=== PATIENT | female | born 1965 | race Hispanic/Latino ===

== ENCOUNTER → 2017-11-27 | Outpatient (CLI) | payer BC ==
[2017-11-30 08:11] LABS: BASOPHILS % 0.4 % (0.0-1.0); EOSINOPHILS # (AUTO) 0.1 (0.0-0.4); EOSINOPHILS % 1.6 % (0.0-6.0); HEMATOCRIT 38.7 % (34.2-44.1); HEMOGLOBIN 12.3 g/dL (12.0-16.0); LYMPHOCYTES # (AUTO) 2.8 (1.0-3.2); LYMPHOCYTES % 34.3 % (18.0-39.1); MEAN CORPUSCULAR HEMOGLOBIN 28.8 pg (28-32); MEAN CORPUSCULAR HGB CONC 31.8 g/dL (31-35); MEAN CORPUSCULAR VOLUME 90.6 fL (81-99); MONOCYTES # (AUTO) 0.7 (0.2-0.8); MONOCYTES % 8.1 % (4.4-11.3); NEUTROPHILS # (AUTO) 4.6 (2.1-6.9); NEUTROPHILS % 55.4 % (38.7-80.0); PLATELET COUNT 165 x10e3/uL (140-360); RED BLOOD COUNT 4.27 x10e6/uL (3.6-5.1); RED CELL DISTRIBUTION WIDTH 13.7 % (11.7-14.4)
[2017-11-30 08:35] LABS: INR 1.13; PARTIAL THROMBOPLASTIN TIME 26.3 seconds (23.8-35.5); PROTHROMBIN TIME 13.6 seconds (11.9-14.5)
[2017-11-30 08:44] LABS: % IRON SATURATION 7 % (15-50); ALANINE AMINOTRANSFERASE 49 IU/L (0-55); ALBUMIN 3.4 g/dL (3.5-5.0); ALBUMIN/GLOBULIN RATIO 0.9 (0.8-2.0); ALKALINE PHOSPHATASE 77 IU/L (40-150); ANION GAP 11.6 mmol/L (8-16); BLOOD UREA NITROGEN 17 mg/dL (7-26); BUN/CREATININE RATIO 26 (6-25); CALCIUM 9.1 mg/dL (8.4-10.2); CARBON DIOXIDE 28 mmol/L (22-29); CHLORIDE 103 mmol/L (98-107); CREATININE, SERUM 0.65 mg/dL (0.57-1.11); EST GLOMERULAR FILTRATION RATE > 60 ML/MIN (60-); GLUCOSE 121 mg/dL (74-118); IRON 28 ug/dL (50-170); POTASSIUM 3.6 mmol/L (3.5-5.1); SODIUM 139 mmol/L (136-145); TOTAL IRON BINDING CAPACITY 395 ug/dL (261-478); TRANSFERRIN 282 mg/dL (180-382)
[2017-11-30 09:04] LABS: FERRITIN 58.28 ng/mL (4.63-204.00)
== END ==
LOC: LAB 15:52
PROVIDERS: ATTEND Internal Medicine Gastroenterology
DX: R12 Heartburn (principal); R74.8 Abnormal levels of other serum enzymes; E11.9 Type 2 diabetes mellitus without complications; I10 Essential (primary) hypertension; E66.9 Obesity, unspecified; Z12.11 Encounter for screening for malignant neoplasm of colon; Z11.3 Encounter for screening for infections with a predominantly sexual mode of transmission
CPT/HCPCS: 36415; 80053; 82105; 82728; 83540; 84466; 85025; 85610; 85730; 86039; 86255; 86256; 86706; 87340; 87522

== ENCOUNTER 2025-01-09 08:26 | Emergency (ER) | payer BC ==
[~2025-01-09] VITALS: Ht 160 cm; Wt 81.2 kg
[2025-01-09 08:40] VITALS: TEMP 98.3
[2025-01-09 09:38] LABS: BASOPHILS % 0.7 % (0.0-1.0); EOSINOPHILS # (AUTO) 0.1 (0.0-0.4); HEMATOCRIT 42.8 % (34.2-44.1); HEMOGLOBIN 13.6 g/dL (12.0-16.0); LYMPHOCYTES # (AUTO) 1.6 (1.0-3.2); LYMPHOCYTES % 29.6 % (18.0-39.1); MEAN CORPUSCULAR HEMOGLOBIN 28.8 pg (28-32); MEAN CORPUSCULAR HGB CONC 31.8 g/dL (31-35); MEAN CORPUSCULAR VOLUME 90.7 fL (81-99); MONOCYTES # (AUTO) 0.4 (0.2-0.8); MONOCYTES % 6.8 % (4.4-11.3); NEUTROPHILS # (AUTO) 3.3 (2.1-6.9); NEUTROPHILS % 60.7 % (38.7-80.0); PLATELET COUNT 206 x10e3/uL (140-360); RED BLOOD COUNT 4.72 x10e6/uL (3.6-5.1); RED CELL DISTRIBUTION WIDTH 12.9 % (11.7-14.4); WHITE BLOOD COUNT 5.48 x10e3/uL (4.8-10.8)
[2025-01-09 09:57] LABS: ALANINE AMINOTRANSFERASE 95 IU/L (0-55); ALBUMIN 4.1 g/dL (3.5-5.0); ALBUMIN/GLOBULIN RATIO 0.9 (0.8-2.0); ALKALINE PHOSPHATASE 73 IU/L (40-150); ANION GAP 16.1 mmol/L (8-16); BILIRUBIN,TOTAL 0.5 mg/dL (0.2-1.2); BLOOD UREA NITROGEN 11 mg/dL (7-26); BUN/CREATININE RATIO 14 (6-25); CALCIUM 9.5 mg/dL (8.4-10.2); CARBON DIOXIDE 24 mmol/L (22-29); CHLORIDE 100 mmol/L (98-107); CREATININE, SERUM 0.76 mg/dL (0.57-1.11); EST GLOMERULAR FILTRATION RATE 90 ML/MIN (>=60); GLUCOSE 229 mg/dL (74-118); LIPASE 11 U/L (8-78); POTASSIUM 4.1 mmol/L (3.5-5.1); SODIUM 136 mmol/L (136-145); TOTAL PROTEIN 8.5 g/dL (6.5-8.1)
[2025-01-09 10:11] LABS: TROPONIN I < 0.001 ng/mL (0-0.300)
[2025-01-09] MEDS ORDERED: NAPROXEN250 MG PO (10:18)
[2025-01-09 10:26] VITALS: PULSE 71; RESP 20
[2025-01-09 11:01] VITALS: BP_SYST 126; PULSE 68; RESP 18; TEMP 98.3; O2SAT 98
== END 2025-01-09 11:03 | disposition home or self-care (01) ==
LOC: ER 08:39
DX: M25.512 Pain in left shoulder (principal); M75.32 Calcific tendinitis of left shoulder; K21.9 Gastro-esophageal reflux disease without esophagitis; R94.31 Abnormal electrocardiogram [ECG] [EKG]
CPT/HCPCS: 36415; 71045; 80053; 83690; 84484; 85025; 93005; 99284

== ENCOUNTER 2025-01-29 16:35 | Emergency (ER) | payer BC ==
[~2025-01-29] VITALS: Ht 157.5 cm; Wt 79.6 kg
[~2025-01-29 16:35] MED LIST: NAPROXEN250 MG PO
[2025-01-29 16:40] VITALS: PULSE 82; RESP 17; TEMP 98.1; O2SAT 98
[2025-01-29] MEDS ORDERED: TYLENOL325 MG PO (17:01)
[2025-01-29] MEDS ORDERED: IBUPROFEN800 MG PO (17:01)
[2025-01-29] MEDS ORDERED: ULTRAM 50MG50 MG PO (17:01)
[2025-01-29] MEDS: KETOROLAC TROMETHAMINE 30 MG/ML VIAL IM ONE (17:04)
[2025-01-29] MEDS: ACETAMINOPHEN 325 MG TAB PO ONE (17:04)
== END 2025-01-29 17:13 | disposition home or self-care (01) ==
LOC: FSED 16:38
DX: M25.512 Pain in left shoulder (principal); M77.8 Other enthesopathies, not elsewhere classified; E11.9 Type 2 diabetes mellitus without complications; K21.9 Gastro-esophageal reflux disease without esophagitis
CPT/HCPCS: 81003; 99284; J1885

== ENCOUNTER 2025-03-17 16:43 | Emergency (ER) | payer BC ==
[~2025-03-17] VITALS: Ht 160 cm; Wt 80.1 kg
[~2025-03-17 16:43] MED LIST changes: +IBUPROFEN800 MG PO; +TYLENOL325 MG PO; +ULTRAM 50MG50 MG PO
[2025-03-17] MEDS ORDERED: CYCLOBENZAPRINE5 MG PO (17:23)
[2025-03-17] MEDS ORDERED: NAPROXEN250 MG PO (17:23)
[2025-03-17] MEDS ORDERED: METFORMIN HCL1000 M1 (17:23)
[2025-03-17] MEDS ORDERED: PYRIDIUM100 MG PO (17:50)
[2025-03-17] MEDS ORDERED: CIPRO500 MG PO (17:50)
[2025-03-17 17:57] VITALS: PULSE 87; RESP 16; TEMP 97.9; O2SAT 97
== END 2025-03-17 17:57 | disposition home or self-care (01) ==
LOC: FSED 16:55
DX: N39.0 Urinary tract infection, site not specified (principal); R00.2 Palpitations; E11.9 Type 2 diabetes mellitus without complications; Z79.84 Long term (current) use of oral hypoglycemic drugs; K21.9 Gastro-esophageal reflux disease without esophagitis
CPT/HCPCS: 81003; 93005; 99283